=== PATIENT | female | born 1945 | race Asian ===

== ENCOUNTER 2022-03-01 21:49 | Emergency (ER) | payer OTHER, BC ==
[~2022-03-01] VITALS: Ht 157.5 cm; Wt 55.8 kg
[2022-03-01 21:58] VITALS: BP 136/71
--- NOTE | 2022-03-01 23:18 | NUR ---
Patient ambulated to bed 8.
--- NOTE | 2022-03-01 23:45 | NUR ---
RAD AT BEDSIDE
--- NOTE | 2022-03-02 00:30 | NUR ---
MD GARZA AT BEDSIDE ASSESSING PATIETN
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
[2022-03-02] MEDS ORDERED: KETOROLAC 30 MG/ML VIAL IM ONE (00:35)
--- NOTE | 2022-03-02 00:41 | NUR ---
HEAVENLY TAKEN TO CT VIA W/C
--- NOTE | 2022-03-02 00:49 | NUR ---
HEAVENLY RETURNED TO ROOM 8 VIA W/C
--- NOTE | 2022-03-02 01:17 | NUR ---
SON AT BEDSIDE
[2022-03-02] MEDS ORDERED: ACET-10509 PO (01:54)
[2022-03-02] MEDS ORDERED: CYCL-711 PO (01:54)
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
[2022-03-02 02:30] VITALS: BP 110/76
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
--- NOTE | 2022-03-02 02:31 | NUR ---
Chart checked and completed.
== END 2022-03-02 02:30 | disposition home or self-care (01) ==
LOC: MED 21:49
DX: R07.89 Other chest pain (principal); I10 Essential (primary) hypertension; E78.5 Hyperlipidemia, unspecified; Z98.890 Other specified postprocedural states; Z79.899 Other long term (current) drug therapy; Z88.2 Allergy status to sulfonamides; V49.49XA Driver injured in collision with other motor vehicles in traffic accident, initial encounter; Y93.89 Activity, other specified; Y92.410 Unspecified street and highway as the place of occurrence of the external cause; Y99.8 Other external cause status
CPT/HCPCS: 71045; 71250; 96372; 99285; J1885; Q0092